=== PATIENT | male | born 1985 | race African-American/Black ===

== ENCOUNTER → 2016-09-29 06:06 | Day surgery (SDC) | payer OTHER ==
[~2016-09-29 06:06] MED LIST: Buffered Lidocaine 1% SYR 3ML* 3 ML/SYR SYRINGE INTRADERM ONE; Buffered Lidocaine 1% SYR 3ML* 3 ML/SYR SYRINGE ONE; Clindamycin 900 MG IVPREMIX(* 900 MG/50 ML SDV IV ONE; HYDROmorphone INJ* 1 MG/ML CARPUJECT SYRINGE IV PRN; Lidocaine 2% PF* 10 ML AMP ONE; Midazolam* 1 MG/ML 5 ML VIAL (5 MG) ONE; Ondansetron INJ* 2 MG/ML VIAL IV PRN; Propofol* 10 MG/ML 20 ML BTL IV PUSH ONE; fentaNYL* 50 MCG/ML 2 ML VIAL (100 MCG VIAL) ONE
[2016-09-29 09:10] VITALS: BP 118/75
--- NOTE | 2016-09-30 01:33 | OP ---
DATE OF OPERATION: 09/29/16 - [facility] DATE OF : 81 SURGEON: Delano Simon MD [employer] MEMBER: Lana Easton PA-C ANESTHESIOLOGIST: Hilary Schmidt MD ANESTHESIA: MAC PRE-OP DIAGNOSIS: Pain mass, anterolateral right ankle. POST-OP DIAGNOSIS: Pain mass, anterolateral right ankle, probable ganglion. OPERATIVE PROCEDURE: Excision of mass, right ankle. DESCRIPTION OF PROCEDURE: The patient was taken to the operating room where a 3 -cm longitudinal incision was made over the anterolateral ankle. We incised down directly to the mass, which was about 1 cm in diameter and appeared to be fleshy and when we nicked the corner of it, it leaked clear viscous fluid. We carefully dissected around the ganglion cyst, did not see any direct communication with the ligament or tendon. Small amount of electrocautery was used to cauterize the base of the ganglion. We then irrigated closing with Vicryl and nylon sutures and a compression dressing applied. [id number]/[facility] #: [id number] MTDD
== END ==
LOC: OR 06:06
PROVIDERS: ATTEND Orthopaedic Surgery
DX: M67.471 Ganglion, right ankle and foot (principal)
CPT/HCPCS: 88304; J2001; J2250; J2704; J3010